=== PATIENT | male | born 1970 | race Two or more races ===

== ENCOUNTER 2025-03-12 18:07 | Emergency (ER) | payer MEDICAID, OTHER ==
[~2025-03-12] VITALS: Ht 175.3 cm; Wt 98.8 kg
--- NOTE | 2025-03-12 18:25 | ED.PDOC ---
HPI (NEURO) HPI Comments This is a 54 year old male brought in by presenting to the ED with chief complaint of dizziness. Patient reports that he has been experiencing dizziness when eating dinner today along with associated near-syncopal episode and blurred vision. Patient relays that he has been under undue stress lately and he had been outdoors today. Patient denies any LOC, nausea, vomiting, diarrhea, chest pain, SOB, fever, chills, or fall. Chief Complaint: Dizziness Time Seen by MD: 18:21 Reviewed Notes: Nurses Notes, Medications, Allergies Information Source: Patient, Spouse Mode of Arrival: Wheelchair Severity: Moderate Dizziness/Weakness Severity: Unable to do activities Timing: Hours Duration: Since onset Prehospital treatment: None Symptoms: Near syncope Past Medical History PAST MEDICAL HISTORY: High Lipids, HTN Past Medical History (Other): Prediabetes Surgical History: Hernia Repair Family History Family History: Reviewed,noncontributory to illness Social History Smoker: Cigarettes Alcohol: Denies ETOH Use Drugs: Denies Drug Use Lives In: Home Constitutional: denies: chills, diaphoresis, fatigue, fever, malaise, sweats, weakness, others EENTM: reports: blurred vision; denies: double vision, ear bleeding, ear discharge, ear drainage, ear pain, ear ringing, eye pain, eye redness, hearing loss, mouth pain, mouth swelling, nasal discharge, nose bleeding, nose congestion, nose pain, photophobia, tearing, throat pain, throat swelling, voice changes, others Respiratory: denies: cough, hemoptysis, orthopnea, SOB at rest, shortness of breath, SOB with excertion, stridor, wheezing, others Cardiovascular: reports: others (Near-syncope); denies: chest pain, dizzy spells, diaphoresis, Dyspnea on exertion, edema, irregular heart beat, left arm pain, lightheadedness, palpitations, PND, syncope Gastrointestinal: denies: abdomen distended, abdominal pain, blood streaked bowels, constipated, diarrhea, dysphagia, difficulty swallowing, hematemesis, melena, nausea, poor appetite, poor fluid intake, rectal bleeding, rectal pain, vomiting, others Genitourinary: denies: burning, dysuria, flank pain, frequency, hematuria, incontinence, penile discharge, penile sore, pain, testicle pain, testicle swelling, urgency, others Neurological: reports: dizziness; denies: fainting, headache, left sided numbness, left sided weakness, numbness, paresthesia, pre-existing deficit, right sided numbness, right sided weakness, seizure, speech problems, tingling, tremors, weakness, others Musculoskeletal: denies: back pain, gout, joint pain, joint swelling, muscle pain, muscle stiffness, neck pain, others Integumetry: denies: bruises, change in color, change in hair/nails, dryness, laceration, lesions, lumps, rash, wounds, others Allergic/Immunocompromised: denies: Difficulty Healing, Frequent Infections, Hives, Itching, others Hematologic/Lymphatic: denies: anemia, blood clots, easy bleeding, easy bruising, swollen glands, others Endocrine: denies: excessive hunger, excessive sweating, excessive thirst, excessive urination, flushing, intolerance to cold, intolerance to heat, unexplained weight gain, unexplained weight loss, others Psychiatric: denies: anxiety, bipolar disorder, depression, hopeless, panic disorder, schizophrenia, sleepless, suicidal, others All Other Systems: Reviewed and Negative Physical Exam General Appearance: Mild Distress HEENT: Normal ENT Inspection, Pharynx Normal, TMs Normal Neck: Full Range of Motion, Non-Tender, Normal, Normal Inspection Respiratory: Chest Non-Tender, Lungs Clear, No Accessory Muscle Use, No Respiratory Distress, Normal Breath Sounds Cardiovascular: No Edema, No JVD, No Murmur, No Gallop, Normal Peripheral Pulses, Regular Rate/Rhythm Breast Exam: Deferred Gastrointestinal: No Organomegaly, Non Tender, No Pulsatile Mass, Normal Bowel Sounds, Soft Genitalia: Deferred Pelvic: Deferred Rectal: Deferred Extremities: No calf tenderness, Normal capillary refill, Normal inspection, Normal range of motion, Non-tender, No pedal edema Musculoskeletal : Apperance: Normal Neurologic: Alert, curriculum assistant II-XII nml as Tested, No Motor Deficits, Normal Affect, Normal Mood, No Sensory Deficits Cerebellar Function: Normal Reflexes: Normal Skin: Dry, Normal Color, Warm Lymphatic: No Adenopathy Was a procedure done? Was a procedure done?: No Differential Diagnosis (SZ) Seizure: Syncope CVA: CVA, Encephalopathy X-Ray, Labs, Meds, VS Vital Signs Date Time Temp Pulse Resp B/P (MAP) Pulse Ox O2 Delivery O2 Flow Rate FiO2 03/12/25 20:24 92 18 95 Room Air* 0 21 03/12/25 20:05 97.9 92 18 143/78 (99) 95 97.9 03/12/25 18:23 88 03/12/25 18:20 97.9 97 18 181/86 (117) 95 97.9 Lab Test 03/12/25 18:49 03/12/25 18:18 Range/Units White Blood Count 8.1 4.4-10.8 10^3/uL Red Blood Count 5.28 4.5-5.90 10^6/uL Hemoglobin 16.7 13.5-17.5 g/dL Hematocrit 46.9 41.0-53.0 % Mean Corpuscular Volume 88.8 80.0-100.0 fL Mean Corpuscular Hemoglobin 31.7 28.0-32.0 pg Mean Corpuscular Hemoglobin Concent 35.7 32.0-36.0 g/dL Red Cell Distribution Width 12.3 11.8-14.3 % Platelet Count 218 140-450 10^3/uL Mean Platelet Volume 7.7 6.9-10.8 fL Neutrophils (%) (Auto) 59.5 37.0-80.0 % Lymphocytes (%) (Auto) 28.8 10.0-50.0 % Monocytes (%) (Auto) 8.0 0.0-12.0 % Eosinophils (%) (Auto) 2.9 0.0-7.0 % Basophils (%) (Auto) 0.8 0.0-2.0 % Neutrophils # (Auto) 4.8 1.6-8.6 10 ^3/uL Lymphocytes # (Auto) 2.3 0.4-5.4 10 ^3/uL Monocytes # (Auto) 0.6 0-1.3 10 ^3/uL Eosinophils # (Auto) 0.2 0-0.8 10 ^3/uL Basophils # (Auto) 0.1 0-0.2 10 ^3/uL Nucleated Red Blood Cells 0.2 % Sodium Level 141 136-145 mmol/L Potassium Level 3.4 L 3.5-5.1 mmol/L Chloride Level 105 98-107 mmol/L Carbon Dioxide Level 23 20-31 mmol/L Anion Gap 13 5-15 Blood Urea Nitrogen 17 9-23 mg/dL Creatinine 1.16 0.700-1.30 mg/dL Glomerular Filtration Rate Calc 76 >90 mL/min BUN/Creatinine Ratio 14.7 10.0-20.0 Serum Glucose 132 H 74-106 mg/dL Calcium Level 9.6 8.7-10.4 mg/dL POC Glucose 192 H 70-106 mg/dl Current Medications Medications (Trade) Dose Ordered Sig/Gio Route Start Time Stop Time Status Last Admin Sodium Chloride 500 ml @ 500 mls/hr Q1H ONCE IV 03/12/25 18:45 03/12/25 19:44 DC 03/12/25 20:24 CAT scan of the head shows:IMPRESSION: No acute intracranial findings. Prominent left retrocerebellar CSF space may represent an arachnoid cyst. This can be evaluated with follow-up MRI. The CBC and chemistry panel are within normal limits The patient was given a bolus of normal saline at 500 cc At this time, the patient's symptoms are dissipating and the patient will be discharged The patient will follow up with the primary care doctor The patient's diagnosis is vertigo The patient was given a prescription of Antivert. Images Reviewed?: Images reviewed and evaluated by me Time of 1ST Reevaluation: 20:41 Reevaluation 1ST: Unchanged Patient Education/Counseling: Diagnosis, Treatment, Prognosis, Need For Follow Up Family Education/Counseling: Diagnosis, Treatment, Prognosis, Need For Follow Up Additional Information Reviewed patient's previous visit(s): The following tests were ordered, and results were reviewed by me: Additional information was gathered from interviewing the following independent historian: NONE I reviewed and agreed with the following test results read by other provider: NONE I discussed treatments and results with medical personnel and: Patient Comprehensive systems review obtained and negative except for what is stated in the HPI. Departure 1 Departure Time of Disposition: 20:56 Impression: Primary Impression: Vertigo Disposition: 01 HOME / SELF CARE / HOMELESS Condition: Fair Discharged With: Self Critical Care Note Critical Care Time?: No Stability Stability form required: No Heart Score Heart Score: Heart Score Response (Comments) Value History N/A 0 EKG N/A 0 Age N/A 0 Risk Factors N/A 0 Troponin N/A 0 Total 0 I personally scribed for AYESHA BUTLER MD ([email or web address]) on 03/12/25 at 18:24. Elec tronically submitted by Rojas Everett ([email or web address]). AYESHA BUTLER MD Mar 12, 2025 18:24
--- NOTE | 2025-03-12 18:29 | ECG ---
[facility] Test Date: 2025-03-12 Test Time: 18:23:42 Pat Name: MO SOUZA Department: ER Room: Gender: M [employer] Work Dispatcher: GP : [id number] Requested By: AYESHA BUTLER Order Number: [id number] Reading MD: Jesus Alford Measurements Intervals [place] Rate: 88 P: 71 [place]: 172 QRS: -36 QRSD: 91 T: 41 QT: 364 QTc: 441 Interpretive Statements Sinus rhythm Left axis deviation Baseline wander in lead(s) III,aVL,V6 Electronically Signed On 03-13-2025 12:38:06 PDT by Jesus Alford Please click the below link to view image of tracing.
[2025-03-12 19:15] LABS: Basophils # (auto) 0.1 10 ^3/uL (0-0.2); Basophils % (auto) 0.8 % (0.0-2.0); Eosinophils # (auto) 0.2 10 ^3/uL (0-0.8); Eosinophils % (auto) 2.9 % (0.0-7.0); Hematocrit 46.9 % (41.0-53.0); Hemoglobin 16.7 g/dL (13.5-17.5); Lymphocytes # (auto) 2.3 10 ^3/uL (0.4-5.4); Lymphocytes % (auto) 28.8 % (10.0-50.0); Mean Corpuscular Hemoglobin 31.7 pg (28.0-32.0); Mean Corpuscular Hgb Conc. 35.7 g/dL (32.0-36.0); Mean Corpuscular Volume 88.8 fL (80.0-100.0); Monocytes # (auto) 0.6 10 ^3/uL (0-1.3); Neutrophils # (auto) 4.8 10 ^3/uL (1.6-8.6); Neutrophils % (auto) 59.5 % (37.0-80.0); Nucleated Red Blood Cells % 0.2 %; Platelet Count (auto) 218 10^3/uL (140-450); Red Blood Cells 5.28 10^6/uL (4.5-5.90); Red Cell Distribution Width 12.3 % (11.8-14.3); White Blood Cell 8.1 10^3/uL (4.4-10.8)
[2025-03-12 19:36] LABS: Chloride 105 mmol/L (98-107); Sodium 141 mmol/L (136-145)
[2025-03-12 19:37] LABS: Anion Gap 13 (5-15); Carbon Dioxide 23 mmol/L (20-31)
[2025-03-12 19:38] LABS: Calcium 9.6 mg/dL (8.7-10.4)
[2025-03-12 19:42] LABS: BUN/Creatinine Ratio 14.7 (10.0-20.0); Blood Urea Nitrogen 17 mg/dL (9-23)
[2025-03-12 19:48] LABS: Glucose 132 mg/dL (74-106); Potassium 3.4 mmol/L (3.5-5.1)
[2025-03-12 20:05] VITALS: BP 143/78; TEMP 97.9
--- NOTE | 2025-03-12 20:17 | DVH ---
CT BRAIN WITHOUT CONTRAST HISTORY: weakness TECHNIQUE: Axial scans were obtained from the skull base through the vertex without contrast. Sagitta l and coronal reformats were generated. One or more of the following radiation dose reduction techniq ues were used for this examination: automated exposure control, adjustment of the mA and/or kV accord ing to patient size, use of iterative reconstruction technique. COMPARISON: None FINDINGS: No acute intracranial hemorrhage or evidence of large vessel territorial infarction identified at thi s time. No midline shift. The basilar cisterns are patent. Prominent left retrocerebellar CSF space. The visualized paranasal sinuses and mastoid air cells are clear. No grossly displaced calvarial abno rmalities identified. IMPRESSION: No acute intracranial findings. Prominent left retrocerebellar CSF space may represent an arachnoid cyst. This can be evaluated with follow-up MRI.
[2025-03-12 20:24] VITALS: PULSE 92; RESP 18; O2SAT 95
[2025-03-12] MEDS: SODIUM CHLORIDE 0.9% 500 ML IV ONE (20:24)
[2025-03-12] MEDS ORDERED: MECL25CH85 PO (20:57)
[2025-03-12] MEDS ORDERED: MECLIZINE HCL 25 MG TAB PO ONE (21:00)
[2025-03-12 21:07] LABS: Urine Bacteria None Seen /hpf (None Seen)
[2025-03-12 21:52] LABS: Urine Blood Negative /uL (Negative); Urine Clarity Clear (Clear); Urine Color Yellow (Yellow); Urine Protein, UAD Negative (Negative); Urine Specific Gravity 1.018 (1.001-1.035); Urine Squamous Epithelial Cell None Seen /hpf (<5); Urine Urobilinogen Normal (Negative); Urine WBC < 1 /HPF (0-3)
[2025-03-12 21:55] LABS: Amphetamine Screen, Urine Neg (NEGATIVE); Barbiturate Scree,Urine Neg (NEGATIVE); Benzodiazephine Screen, Urine Neg (NEGATIVE); Cannabinoid Screen, Urine Neg (NEGATIVE); Cocaine Screen, Urine Neg (NEGATIVE); Opiate Scree,Urine Neg (NEGATIVE); Phencyclidine Screen, Urine Neg (NEGATIVE)
== END 2025-03-12 23:41 | disposition home or self-care (01) ==
LOC: ER 18:07
DX: R42 Dizziness and giddiness (principal); R55 Syncope and collapse; R53.1 Weakness; H53.8 Other visual disturbances; I10 Essential (primary) hypertension; F17.210 Nicotine dependence, cigarettes, uncomplicated; E78.5 Hyperlipidemia, unspecified; Z98.890 Other specified postprocedural states
CPT/HCPCS: 36415; 70450; 80048; 80307; 81001; 82947; 85025; 93005; 96360; 99284; J7040; 82962